=== PATIENT | female | born 1940 ===

== ENCOUNTER 2020-11-20 12:30 | Inpatient (IN) | payer OTHER ==
[~2020-11-20] VITALS: Ht 152.4 cm; Wt 77.6 kg
[2020-11-20] MEDS ORDERED: DILTIAZEM ER180 M3 PO (14:52)
[2020-11-20] MEDS ORDERED: ZOLOFT50 MG PO (14:52)
[2020-11-20] MEDS ORDERED: ELIQUIS5 MG PO (14:52)
[2020-11-20] MEDS ORDERED: COZAAR50 MG PO (14:52)
[2020-11-20] MEDS ORDERED: COMBIVENT RESPIM4 GM IH (14:53)
[2020-11-20] MEDS ORDERED: SINGULAIR10 MG PO (14:53)
[2020-11-20] MEDS ORDERED: FAMOTIDINE40 MG PO (14:54)
[2020-11-20] MEDS ORDERED: PROTONIX40 MG PO (14:54)
[2020-11-20] MEDS ORDERED: PRAVASTATIN SOD20 MG PO (14:55)
[2020-11-20] MEDS ORDERED: AIRDUO RESPICL1 EACH IH (14:56)
[2020-11-20] MEDS ORDERED: D3 + K2 DOTS 11 EACH PO (14:56)
[2020-11-25] MEDS ORDERED: VITAMIN D3125 MC1 (09:22)
[2020-11-25] MEDS ORDERED: LEVOCETIRIZINE D5 MG (09:22)
[2020-11-25] MEDS ORDERED: ALENDRONATE SOD70 MG (09:23)
[2020-11-25] MEDS ORDERED: FLONASE16 GM (09:23)
[2020-12-03] MEDS ORDERED: HYOSCYAMINE0.125 M1 SL (10:49)
[2020-12-03] MEDS ORDERED: ULTRACET PO (10:49)
== END 2020-12-03 11:48 | disposition home or self-care (01) | DRG 329 ==
LOC: O/R 11-23 07:28 → SURG 11-23 07:28
PROVIDERS: Surgery; ADMIT Surgery; ATTEND Surgery
PROC: 0TQB0ZZ Repair Bladder, Open Approach (ICD-10-PCS; 2020-11-23)
PROC: 3E0F7SF Introduction of Other Gas into Respiratory Tract, Via Natural or Artificial Opening (ICD-10-PCS; 2020-11-23)
PROC: 0DBF4ZZ Excision of Right Large Intestine, Percutaneous Endoscopic Approach (ICD-10-PCS; principal; 2020-11-23 19:30)
PROC: 0TBB0ZZ Excision of Bladder, Open Approach (ICD-10-PCS; 2020-11-23 19:30)
PROC: 4A12X4Z Monitoring of Cardiac Electrical Activity, External Approach (ICD-10-PCS; 2020-11-25)
PROC: 4A033R1 Measurement of Arterial Saturation, Peripheral, Percutaneous Approach (ICD-10-PCS; 2020-11-30)
PROC: BT00ZZZ Plain Radiography of Bladder (ICD-10-PCS; 2020-12-01)
DX: C18.7 Malignant neoplasm of sigmoid colon (principal); J18.9 Pneumonia, unspecified organism; C79.11 Secondary malignant neoplasm of bladder; N32.1 Vesicointestinal fistula; J98.11 Atelectasis; K91.89 Other postprocedural complications and disorders of digestive system; K56.7 Ileus, unspecified; Y83.8 Other surgical procedures as the cause of abnormal reaction of the patient, or of later complication, without mention of misadventure at the time of the procedure; Y81.8 Miscellaneous general- and plastic-surgery devices associated with adverse incidents, not elsewhere classified; Y92.230 Patient room in hospital as the place of occurrence of the external cause; I48.91 Unspecified atrial fibrillation; K66.0 Peritoneal adhesions (postprocedural) (postinfection); J45.909 Unspecified asthma, uncomplicated